=== PATIENT | female | born 1995 | race African-American/Black ===

== ENCOUNTER 2020-04-04 13:51 | Observation (INO) | payer OTHER ==
[~2020-04-04 13:51] MED LIST: NALOXONE HCL INJ 2 MG/2 ML DISP.SYRIN IV ONE
[2020-04-04] MEDS ORDERED: NORMAL SALINE 1000 ML 1,000 ML IV ONE (14:03)
[2020-04-04 14:20] LABS: ABSOLUTE LYMPHOCYTES (AUTO) 2.5 10^3/uL (0.5-4.7); ABSOLUTE MONOCYTES (AUTO) 0.5 10^3/uL (0.1-1.4); BASOPHILS % (AUTO) 0.3 % (0-2); EOSINOPHILS % (AUTO) 0.6 % (0-6); HEMATOCRIT 38.9 % (36.0-47.0); HEMOGLOBIN 13.4 g/dL (12.0-15.5); LYMPHOCYTES % (AUTO) 41.5 % (13-45); MEAN CORPUSCULAR HEMOGLOBIN 29.6 pg (27.0-33.4); MEAN CORPUSCULAR HGB CONC 34.5 g/dL (32.0-36.0); MEAN CORPUSCULAR VOLUME 86 fl (80-97); MONOCYTES % (AUTO) 7.7 % (3-13); PLATELET COUNT 226 10^3/uL (150-450); RED BLOOD COUNT 4.53 10^6/uL (3.72-5.28); SEGMENTED NEUTROPHILS % (AUTO) 49.9 % (42-78); TOTAL CELLS COUNTED % (AUTO) 100 %
[2020-04-04] MEDS ORDERED: LORAZEPAM INJ 2 MG/1 ML VIAL IV ONE (14:25)
[2020-04-04 14:38] LABS: ALBUMIN 4.5 g/dL (3.5-5.0); ALCOHOL 45 mg/dL (NONE DETECTED); ALKALINE PHOSPHATASE 68 U/L (38-126); ANION GAP 8 (5-19); ASPARTATE AMINO TRANSFERASE 27 U/L (14-36); BILIRUBIN,DIRECT 0.2 mg/dL (0.0-0.4); BILIRUBIN,TOTAL 0.9 mg/dL (0.2-1.3); BLOOD UREA NITROGEN 11 mg/dL (7-20); CALCIUM 9.9 mg/dL (8.4-10.2); CARBON DIOXIDE 26 mmol/L (22-30); CHLORIDE 103 mmol/L (98-107); GLUCOSE 101 mg/dL (75-110); POTASSIUM 4.7 mmol/L (3.6-5.0); TOTAL PROTEIN 7.7 g/dL (6.3-8.2)
[2020-04-04 14:41] LABS: ACETAMINOPHEN < 10 ug/mL (10-30); SALICYLATE < 1.0 mg/dL (2.0-20.0)
[2020-04-04 14:42] LABS: APPEARANCE,URINE CLEAR; BILIRUBIN,URINE NEGATIVE (NEGATIVE); COLOR,URINE STRAW; GLUCOSE, URINE NEGATIVE (NEGATIVE); KETONES,URINE NEGATIVE (NEGATIVE); PROTEIN,URINE NEGATIVE (NEGATIVE); URINE SPECIFIC GRAVITY 1.008; UROBILINOGEN,URINE NEGATIVE mg/dL (<2.0)
--- NOTE | 2020-04-04 14:46 | RADIOLOGY REPORT (SQ) ---
EXAM DESCRIPTION: CHEST SINGLE VIEW IMAGES COMPLETED DATE/TIME: 04/04/2020 2:32 pm REASON FOR STUDY: tube placement COMPARISON: None. EXAM PARAMETERS: NUMBER OF VIEWS: One view. TECHNIQUE: Single frontal radiographic view of the chest acquired. RADIATION DOSE: NA LIMITATIONS: None. FINDINGS: LUNGS AND PLEURA: No opacities, masses or pneumothorax. No pleural effusion. MEDIASTINUM AND HILAR STRUCTURES: No masses. Contour normal. HEART AND VASCULAR STRUCTURES: Heart normal in size. Normal vasculature. BONES: No acute findings. HARDWARE: None in the chest. OTHER: Endotracheal tube tip between thoracic inlet and marge. Nasogastric tube tip overlying the s tomach. IMPRESSION: Good position of endotracheal and nasogastric tubes. No pneumothorax. TECHNICAL DOCUMENTATION: JOB ID: [id number] 2010 [id number]- All Rights Reserved Reading location - IP/workstation name: [email or web address]
--- NOTE | 2020-04-04 14:47 | ER Document Report ---
ED General - General Chief Complaint: Overdose Stated Complaint: POSSIBLE OVERDOSE Time Seen by Provider: 04/04/20 14:02 - HPI Notes: Chief complaint: Attentional overdose History of present illness: 25-year-old female with longstanding history of major depression transported here via EMS after taking intentional overdose of undetermined quantity of BuSpar and whiskey. Further details of the answers are unclear. EMS noted that the patient was profoundly somnolent with impaired gag reflex and minimal responsiveness to deep pain. They were bagging her intermittently during transport. Blood sugar in the field by fingerstick was 122. They did not administer Narcan. Family members advised EMS that patient has overdosed herself in the past and is also a "cutter". Other details of prior medical history are undetermined at this time. - Related Data Allergies/Adverse Reactions: No Known Allergies Allergy (Verified 04/04/20 14:59) Past Medical History - General Information source: Emergency Med Personnel Cannot obtain history due to: Altered mental status - Social History Smoking Status: Unknown if Ever Smoked Lives with: Spouse/Significant other Family History: Reviewed & Not Pertinent Review of Systems - Review of Systems -: Yes ROS unobtainable due to patient's medical condition Physical Exam - Vital signs Vitals: Resp Pulse Ox 19 100 04/04/20 13:50 04/04/20 13:50 - Notes Notes: GENERAL: Well-developed well-nourished female approximately stated age who is de eply obtunded. SKIN: Good turgor no rashes. HEAD: Normocephalic atraumatic. EYES: Pupils are small equal and sluggishly reactive to light. Gaze is conjugate. Conjunctivae and sclerae clear. EARS: CANALS AND TMS CLEAR. NOSE: CLEAR. MOUTH: Moist mucosa. Good dentition. No stridor or edema. No drooling. Throat: Absent gag reflex. NECK: Supple. No masses or thyromegaly. No adenopathy. Carotids 2+ without bruits. No JVD. BACK: Symmetrical without tenderness. CHEST: Respirations shallow. Breath sounds clear and symmetrical. HEART: Regular rhythm. No murmur gallop or rub. ABDOMEN: Soft nontender without masses, organomegaly or rebound. Bowel sounds normally active. No bruits. GENITALIA: Deferred. EXTREMITIES: No edema. No calf tenderness. Cap refill less than 1.5 seconds. Dorsalis pedis and posterior tibial pulses 3+ and symmetrical. NEUROLOGICAL: Patient is nonverbal. She will open eyes to loud verbal stimuli. Localizes pain. Moves all 4 extremities symmetrically in response to pain. Course - Re-evaluation Re-evalutation: 04/04/20 14:47 We gave the patient Narcan. Her level of responsiveness failed to improve at all. She had persistent absence of gag reflex. She was intubated for airway protection. Within 10 minutes of intubation the patient started coughing vigorously sitting upright in the bed and grabbing for the ET tube. We felt at that point she should be extubated and the ET tube was removed. Patient subsequently is talking to me and tells me that she "just wanted to get away" but is reticent to relate much additional history. Patient" for IVC this time. Her medical work-up is in progress for medical clearance. 04/04/20 16:52 Patient is alert and oriented x3 with stable vital signs at this time. Her salicylate and acetaminophen levels were undetectable. Her EKG showed no alteration of axis or intervals. She remains in a normal sinus rhythm at this time. Chemistry profile is unremarkable. Her blood alcohol initially was 49. Her urine tox screen here was all negative. Findings have been discussed with on-call steam bone press tender at [place] poison control Dr. Rogel concerned that the patient may have an undetected coingestions because of her severe ischial symptoms including respiratory depression and altered mental status with loss of airway protection requiring brief intubation. He has recommended that patient should be admitted to a tele metry monitored bed for 24 hours to complete medical clearance. Behavioral team is seen the patient in a petition for IVC. I have discussed current findings and toxicology recommendations with Dr. Thompson and he has assigned case for admission to Dr. Edmonds. I am awaiting a return call to have him accept the admission. - Vital Signs Vital signs: Temp Pulse Resp BP Pulse Ox 97.2 F 15 122/76 100 04/04/20 15:01 04/04/20 15:01 04/04/20 15:01 04/04/20 15:01 - Laboratory Result Diagrams: 04/04/20 13:50 04/04/20 13:50 Laboratory results interpreted by me: 04/04/20 13:50 Salicylates < 1.0 L Acetaminophen < 10 L - Diagnostic Test Radiology reviewed: Image reviewed, Reports reviewed Radiology results interpreted by me: 04/04/20 14:49 Chest X-Ray 04/04/20 14:16 IMPRESSION: Good position of endotracheal and nasogastric tubes. No p neumothorax. - EKG Interpretation by Me Additional EKG results interpreted by me: 04/04/20 14:49 Twelve-lead EKG reviewed by me contemporaneously: 1356 hrs. Indication for study: Polydrug overdose Rhythm: Normal sinus Rate:81 Intervals: Normal QRS axis: Normal +[address]/T wave changes: None Comparison with prior tracing: None Interpretation: Normal EKG Procedures - Intubation Orotracheal Time of Intubation: 14:10 Airway evaluation: Normal anatomy Mallampati Classification: Class 2 Medications: Succinylcholine Intubation method: Orotracheal Blade type: Marilynn Blade size: 3 Equipment used: Glidescope ETT size: 7.5 ETT secured at: Lips ETT secured at (cm): 23 Breath Sounds after Intubation: Equal End tidal CO2 confirmed: Yes Post Intubation Xray: Yes - Good tube position Intubation Complications: No complications Critical Care Note - Critical Care Note Total time excluding time spent on procedures (mins): 35 - Intentional drug/alcohol overdose. Intubated by me on arrival for airway protection. Discharge - Discharge Clinical Impression: Intentional overdose BuSpar, Suicide attempt by deliberate overdose Condition: Stable Disposition: ADMITTED INPATIENT Admitting Provider: Kendal (Hospitalist) Unit Admitted: Telemetry
[2020-04-04 15:00] LABS: URINE AMPHETAMINES SCREEN NEGATIVE; URINE BARBITURATES SCREEN NEGATIVE; URINE BENZODIAZEPINES SCREEN NEGATIVE; URINE COCAINE SCREEN NEGATIVE; URINE MARIJUANA (THC) SCREEN NEGATIVE; URINE METHADONE SCREEN NEGATIVE; URINE PHENCYCLIDINE SCREEN NEGATIVE
[2020-04-04] MEDS ORDERED: NALOXONE HCL INJ/PF 0.4 MG/1 ML SDV IV ONE (15:02)
[2020-04-04] MEDS ORDERED: SUCCINYLCHOLINE CHLORIDE INJ 200 MG/10 ML VIAL IV ONE (15:02)
--- NOTE | 2020-04-04 15:18 | RADIOLOGY REPORT (SQ) ---
EXAM DESCRIPTION: CHEST SINGLE VIEW IMAGES COMPLETED DATE/TIME: 04/04/2020 3:01 pm REASON FOR STUDY: Postextubation COMPARISON: Earlier same day. EXAM PARAMETERS: NUMBER OF VIEWS: One view. TECHNIQUE: Single frontal radiographic view of the chest acquired. RADIATION DOSE: NA LIMITATIONS: None. FINDINGS: LUNGS AND PLEURA: No opacities, masses or pneumothorax. No pleural effusion. MEDIASTINUM AND HILAR STRUCTURES: No masses. Contour normal. HEART AND VASCULAR STRUCTURES: Heart normal in size. Normal vasculature. BONES: No acute findings. HARDWARE: None in the chest. OTHER: No other significant finding. IMPRESSION: Interval extubation. No pneumothorax. TECHNICAL DOCUMENTATION: JOB ID: [id number] 2010 [facility]- All Rights Reserved Reading location - IP/workstation name: [email or web address]
[2020-04-04] MEDS ORDERED: SUCCINYLCHOLINE CHLORIDE INJ 200 MG/10 ML VIAL ONE (15:44)
[2020-04-04] MEDS ORDERED: ACETAMINOPHEN 325 MG TABLET PO PRN (17:00)
[2020-04-04] MEDS ORDERED: ONDANSETRON HCL INJ/PF 4 MG/2 ML SDV IV PRN (17:00)
--- NOTE | 2020-04-04 17:16 | PDOC H&P ---
History of Present Illness Admission Date/PCP: 04/04/20 17:00 Patient complains of: Brought in by EMS with intentional drug overdose History of Present Illness: HAMMAD CASTILLO is a 25 year old female history of major depression brought in by EMS with complaints of intentional drug overdose including BuSpar and whiskey. In the emergency room patient was intubated to protect the airway after 10 minutes patient tried to pull out the ET-tube, ER physician pull the ET tube out to prevent trauma. Lab work within normal limits. EKG within normal limits. Psych consult was requested. Poison control is notified. As per the poison control recommendations medical consult was called to place the patient in the hospital for observation with telemetry. Past Medical History Cardiac Medical History: Reports: None Pulmonary Medical History: Reports: None EENT Medical History: Reports: None Neurological Medical History: Reports: None Renal/ Medical History: Reports: None Malignancy Medical History: Reports: None Musculoskeltal Medical History: Reports: None Psychiatric Medical History: Reports: Bipolar Disorder, Depression Traumatic Medical History: Reports: None Hematology: Reports: Sickle Cell Disease Social History Lives with: Family, Spouse/Significant other Smoking Status: Current Every Day Smoker Frequency of Alcohol Use: Occasional Hx Recreational Drug Use: No Hx Prescription Drug Abuse: No - Advance Directive Resuscitation Status: Full Code Family History Family History: Reviewed & Not Pertinent Parental Family History Reviewed: Yes - Hypertension. Children Family History Reviewed: Yes Sibling(s) Family History Reviewed.: Yes Medication/Allergy Allergies/Adverse Reactions: No Known Allergies Allergy (Verified 04/04/20 14:59) Review of Systems Constitutional: ABSENT: fever(s) Eyes: ABSENT: visual disturbances Ears: ABSENT: hearing changes Cardiovascular: ABSENT: edema Respiratory: ABSENT: dyspnea, hemoptysis Gastrointestinal: ABSENT: as per HPI Genitourinary: ABSENT: dysuria, hematuria Integumentary: ABSENT: lesions, pruritus Neurological: ABSENT: abnormal gait, abnormal speech, confusion, dizziness, focal weakness, syncope Psychiatric: PRESENT: depression, suicidal ideation Endocrine: ABSENT: cold intolerance, heat intolerance, polydipsia, polyuria Physical Exam Vital Signs: Temp Pulse Resp BP Pulse Ox 97.2 F 15 122/76 100 04/04/20 15:01 04/04/20 15:01 04/04/20 15:01 04/04/20 15:01 Intake & Output 04/03/20 04/04/20 04/05/20 06:59 06:59 06:59 Intake Total 1000 Balance 1000 Weight 90 kg General appearance: PRESENT: no acute distress, cooperative, well-developed Head exam: PRESENT: atraumatic Eye exam: PRESENT: conjunctiva pale, PERRLA Mouth exam: PRESENT: moist, tongue midline Neck exam: ABSENT: carotid bruit, JVD, lymphadenopathy, thyromegaly Respiratory exam: PRESENT: decreased breath sounds Cardiovascular exam: PRESENT: RRR. ABSENT: diastolic murmur, rubs, systolic murmur GI/Abdominal exam: PRESENT: normal bowel sounds, soft. ABSENT: distended, guarding, mass, organolmegaly, rebound, tenderness Rectal exam: PRESENT: deferred Extremities exam: PRESENT: full ROM. ABSENT: calf tenderness, clubbing, pedal edema Neurological exam: PRESENT: alert, awake, oriented to person, oriented to place, oriented to time, oriented to situation, CN II-XII grossly intact. ABSENT: motor sensory deficit Results Laboratory Results: 04/04/20 13:50 04/04/20 13:50 04/04/20 04/04/20 04/04/20 13:50 13:50 14:02 WBC 6.0 RBC 4.53 Hgb 13.4 Hct 38.9 MCV 86 MCH 29.6 MCHC 34.5 RDW 13.0 Plt Count 226 Seg Neutrophils % 49.9 Sodium 137.4 Potassium 4.7 Chloride 103 Carbon Dioxide 26 Anion Gap 8 BUN 11 Creatinine 0.90 Est GFR ( Amer) > 60 Glucose 101 Calcium 9.9 Total Bilirubin 0.9 AST 27 Alkaline Phosphatase 68 Total Protein 7.7 Albumin 4.5 Urine Color STRAW Urine Appearance CLEAR Urine pH 6.0 Ur Specific [place] 1.008 Urine Protein NEGATIVE Urine Glucose (UA) NEGATIVE Urine Ketones NEGATIVE Urine Blood NEGATIVE Impressions: Chest X-Ray 04/04/20 14:49 IMPRESSION: Interval extubation. No pneumothorax. Assessment and Plan - Diagnosis (1) Drug overdose Is this a current diagnosis for this admission?: Yes Plan: 04/04/2020-patient is going to be admitted to telemetry with a diagnosis of drug overdose. Intentional drug overdose. As per the patient she did not slept for several days to get to sleep. She took BuSpar and whiskey. Patient was intub ated and extubated in the emergency room. Psych consult was requested. Patient is under IVC commitment. EKG within normal limits labs are within normal limits. Chest x-ray was normal. To admit the patient to continuously monitor the telemetry. Alcohol level is 45. Started on IV fluids normal saline at 75 cc/h. (2) Smoker Is this a current diagnosis for this admission?: No Plan: 04/04/2020-patient is a chronic daily day smoker. Smoking counseling was provided. To start her on nicotine patches. (3) Bipolar disorder Is this a current diagnosis for this admission?: No Plan: 04/04/2020-patient has history of bipolar disorder. As per the patient she is taking Latuda, BuSpar, Wellbutrin. Psych consult was requested for further MANAGEMENT.. - Time Anticipated Discharge Disposition: Home, Self Care Anticipated Discharge Timeframe: within 24 hours
[2020-04-04] MEDS: PANTOPRAZOLE SODIUM 40 MG TABLET.DR PO SCH (18:30)
[2020-04-04] MEDS: NORMAL SALINE 1000 ML 1,000 ML IV PRN (18:32)
--- NOTE | 2020-04-04 18:52 | PSYCHOLOGICAL NOTE ---
Psych Note - Psych Note Date seen by psych provider: 04/04/20 Time seen by psych provider: 17:30 Psych Note: Reason for Consult: intentional overdose Consent permissions: Patient's sister at bedside per patient's request Patient arrived to [facility] ED via EMS after intentional overdose on Buspar while drinking alcohol. Patient reports [facility] that she thought would be about her time in services; however, they "made" her discuss all her history to include her trauma history has a child, her first , etc. Patient reports she has been arguing with her and just found out he has been cheating (she reports he continues to deny infidelity to her). She stated that her children have been irritable and having difficulties and when she got home after her evaluation session and saw they were still not dressed, she reports "I couldn't take it anymore." Patient sister identifies wanting to be part of patient's plan of care. She reports that she feels it would be better for the patient to come stay with her after treatment due to current marital discord. Patient is alert and orientated to person, place time and circumstance. Mood is dysphoric with flat affect (patient is still feeling the effects of overdose). Patient admits intentional overdose. She denies homicidal ideation. Delusions are absent and behaviors congruent with an intact reality based presentation i.e. organized and linear thought process. Eye contact is fair. Conversational speech is quiet but easily understood. Attention and concentration is fair. Insight, judgment, impulse control is poor. Clinical presentation: Intentional overdose Impression\\plan: Patient is on 24-hour petition for evaluation. Patient reports intentional overdose on her BuSpar while drinking alcohol. Patient identifies triggers including difficult psychiatric evaluation today reviewing all past traumas and marital discord/ possible infidelity. Patient has been medically admitted. Evaluation is ongoing. Dr. Baird was consulted in the care management of this patient; attending physicians in agreement with recommendations and disposition.
--- NOTE | 2020-04-04 19:06 | EKG REPORT ---
SEVERITY:- NORMAL ECG - SINUS RHYTHM : Confirmed by: Julissa Barbour MD 04-Apr-2020 19:06:05
[2020-04-05] MEDS: PANTOPRAZOLE SODIUM 40 MG TABLET.DR PO SCH (06:50)
[2020-04-05 07:31] LABS: ABSOLUTE LYMPHOCYTES (AUTO) 2.3 10^3/uL (0.5-4.7); ABSOLUTE MONOCYTES (AUTO) 0.4 10^3/uL (0.1-1.4); ABSOLUTE NEUT (AUTO) 5.2 10^3/uL (1.7-8.2); BASOPHILS % (AUTO) 0.5 % (0-2); EOSINOPHILS % (AUTO) 0.4 % (0-6); HEMATOCRIT 37.4 % (36.0-47.0); LYMPHOCYTES % (AUTO) 28.6 % (13-45); MEAN CORPUSCULAR HEMOGLOBIN 30.6 pg (27.0-33.4); MEAN CORPUSCULAR HGB CONC 34.7 g/dL (32.0-36.0); MEAN CORPUSCULAR VOLUME 88 fl (80-97); MONOCYTES % (AUTO) 5.6 % (3-13); PLATELET COUNT 210 10^3/uL (150-450); RED BLOOD COUNT 4.25 10^6/uL (3.72-5.28); RED CELL DISTRIBUTION WIDTH 13.3 % (11.5-14.0); SEGMENTED NEUTROPHILS % (AUTO) 64.9 % (42-78); TOTAL CELLS COUNTED % (AUTO) 100 %
[2020-04-05 07:43] LABS: ALBUMIN 3.6 g/dL (3.5-5.0); ALKALINE PHOSPHATASE 57 U/L (38-126); ANION GAP 10 (5-19); ASPARTATE AMINO TRANSFERASE 22 U/L (14-36); BILIRUBIN,TOTAL 0.8 mg/dL (0.2-1.3); BLOOD UREA NITROGEN 9 mg/dL (7-20); CALCIUM 9.1 mg/dL (8.4-10.2); CARBON DIOXIDE 24 mmol/L (22-30); CHLORIDE 107 mmol/L (98-107); CHOLESTEROL 180.14 mg/dL (0-200); GLUCOSE 96 mg/dL (75-110); POTASSIUM 4.2 mmol/L (3.6-5.0); TOTAL PROTEIN 6.4 g/dL (6.3-8.2); TRIGLYCERIDES 62 mg/dL (<150)
[2020-04-05 07:54] LABS: DIRECT LDL 144 mg/dL (<100); NT PRO BNP 13 pg/mL (<125)
[2020-04-05 07:59] LABS: TROPONIN I < 0.012 ng/mL
--- NOTE | 2020-04-05 08:24 | PDOC PROGRESS REPORT ---
Subjective Date:: 04/05/20 Subjective:: 25 year old female history of major depression brought in by EMS with complaints of intentional drug overdose including BuSpar and whiskey. In the emergency room patient was intubated to protect the airway after 10 minutes patient tried to pull out the ET-tube, ER physician pull the ET tube out to prevent trauma. Lab work within normal limits. EKG within normal limits. Psych consult was requested. Poison control is notified. As per the poison control recommendations medical consult was called to place the patient in the hospital for observation with telemetry. 04/05/[id number] female admitted for BuSpar, pesky overdose. Alert awake communicating well. Psych consult was done. Waiting for the further recommendations. Patient will be medically cleared from today. Reason For Visit: INTENTIONAL OVERDOSE BUSPAR,SUICIDE ATTEMPT BY Physical Exam Vital Signs: Temp Pulse Resp BP Pulse Ox 98.1 F 12 119/82 99 04/05/20 05:42 04/05/20 06:01 04/05/20 06:01 04/05/20 06:01 Intake & Output 04/04/20 04/05/20 04/06/20 06:59 06:59 06:59 Intake Total 1000 Output Total 2000 Balance -1000 Weight 90 kg General appearance: PRESENT: no acute distress, well-developed Head exam: PRESENT: atraumatic Eye exam: PRESENT: PERRLA Mouth exam: PRESENT: moist, tongue midline Neck exam: ABSENT: carotid bruit, JVD, lymphadenopathy, thyromegaly Respiratory exam: PRESENT: clear to auscultation jill. ABSENT: rales, rhonchi, wheezes Cardiovascular exam: PRESENT: RRR. ABSENT: diastolic murmur, rubs, systolic murmur GI/Abdominal exam: PRESENT: normal bowel sounds, soft. ABSENT: distended, guarding, mass, organolmegaly, rebound, tenderness Rectal exam: PRESENT: deferred Extremities exam: PRESENT: full ROM. ABSENT: calf tenderness, clubbing, pedal edema Neurological exam: PRESENT: alert, awake, oriented to person, oriented to place, oriented to time, oriented to situation, CN II-XII grossly intact. ABSENT: motor sensory deficit Psychiatric exam: PRESENT: appropriate affect, normal mood. ABSENT: homicidal ideation, suicidal ideation Results Laboratory Results: 04/05/20 06:50 04/05/20 06:50 04/04/20 04/04/20 04/04/20 13:50 13:50 14:02 WBC 6.0 RBC 4.53 Hgb 13.4 Hct 38.9 MCV 86 MCH 29.6 MCHC 34.5 RDW 13.0 Plt Count 226 Seg Neutrophils % 49.9 Sodium 137.4 Potassium 4.7 Chloride 103 Carbon Dioxide 26 Anion Gap 8 BUN 11 Creatinine 0.90 Est GFR ( Amer) > 60 Glucose 101 Calcium 9.9 Magnesium Total Bilirubin 0.9 AST 27 Alkaline Phosphatase 68 Total Protein 7.7 Albumin 4.5 Triglycerides Cholesterol LDL Cholesterol Direct VLDL Cholesterol HDL Cholesterol TSH Urine Color STRAW Urine Appearance CLEAR Urine pH 6.0 Ur Specific [place] 1.008 Urine Protein NEGATIVE Urine Glucose (UA) NEGATIVE Urine Ketones NEGATIVE Urine Blood NEGATIVE 04/05/20 04/05/20 04/05/20 06:50 06:50 06:50 WBC 8.0 RBC 4.25 Hgb 13.0 Hct 37.4 MCV 88 MCH 30.6 MCHC 34.7 RDW 13.3 Plt Count 210 Seg Neutrophils % 64.9 Sodium 141.1 Potassium 4.2 Chloride 107 Carbon Dioxide 24 Anion Gap 10 BUN 9 Creatinine 0.83 Est GFR ( Amer) > 60 Glucose 96 Calcium 9.1 Magnesium 2.1 Total Bilirubin 0.8 AST 22 Alkaline Phosphatase 57 Total Protein 6.4 Albumin 3.6 Triglycerides 62 Cholesterol 180.14 LDL Cholesterol Direct 144 H VLDL Cholesterol 12.0 HDL Cholesterol 36 L TSH 1.62 Urine Color Urine Appearance Urine pH Ur Specific [place] Urine Protein Urine Glucose (UA) Urine Ketones Urine Blood 04/04/20 04/05/20 04/05/20 19:13 00:48 06:50 Troponin I < 0.012 < 0.012 < 0.012 NT-Pro-B Natriuret Pep 13 Impressions: Chest X-Ray 04/04/20 14:49 IMPRESSION: Interval extubation. No pneumothorax. Assessment and Plan - Diagnosis (1) Drug overdose Is this a current diagnosis for this admission?: Yes Plan: 04/04/2020-patient is going to be admitted to telemetry with a diagnosis of drug overdose. Intentional drug overdose. As per the patient she did not slept for several days to get to sleep. She took BuSpar and whiskey. Patient was intubated and extubated in the emergency room. Psych consult was requested. Patient is under IVC commitment. EKG within normal limits labs are within normal limits. Chest x-ray was normal. To admit the patient to continuously monitor the telemetry. Alcohol level is 45. Started on IV fluids normal saline at 75 cc/h. 04/05/2020-patient admitted with her drug overdose with BuSpar and alcohol abuse. Doing well. Labs are within normal limits. EKGs are within normal limits. Telemetry monitoring within normal limits. Patient is medically cleared. (2) Smoker Is this a current diagnosis for this admission?: No Plan: 04/04/2020-patient is a chronic daily day smoker. Smoking counseling was pr ovided. To start her on nicotine patches. (3) Bipolar disorder Is this a current diagnosis for this admission?: No Plan: 04/04/2020-patient has history of bipolar disorder. As per the patient she is taking Latuda, BuSpar, Wellbutrin. Psych consult was requested for further MANAGEMENT.. - Time Anticipated Discharge Disposition: Home, Self Care Anticipated Discharge Timeframe: within 72 hours
[2020-04-05] MEDS: NORMAL SALINE 1000 ML 1,000 ML IV PRN (08:51)
[2020-04-05] MEDS ORDERED: NICOTINE 21 MG/24 HR PATCH.TD24 TD SCH (10:00)
[2020-04-05] MEDS ORDERED: ENOXAPARIN SODIUM INJ 40 MG/0.4 ML DISP.SYRIN SUBCUT SCH (10:00)
--- NOTE | 2020-04-05 12:02 | PSYCHOLOGICAL NOTE ---
Psych Note - Psych Note Date seen by psych provider: 04/05/20 Time seen by psych provider: 11:37 Psych Note: Presenting Problem: Overdose From [id number] obtained collateral and discussion for plan of care for discharge from/with mother Ene Haider ([phone]). Patient provided the contact information. She stated "as far as she knows patient has never done this before, she had been seeing a therapist outpatient for depression but is unsure when the last time was, things had gotten sienna so she moved out of patient's home but resides just down the street, and stated because of not being in the house lately is not aware of what's been going on with patient." She stated "I will do as much as I can to help, to help her get better, to be part of the support system." She stated she does not live far and would be able/willing to keep medications, bring them to patient when she is supposed to take them, and stated "I will do anything to avoid this happening again."
--- NOTE | 2020-04-05 13:08 | PSYCHOLOGICAL NOTE ---
Psych Note - Psych Note Date seen by psych provider: 04/05/20 Time seen by psych provider: 11:02 Psych Note: [id number] Re-evaluation Reason for Consult: suicidal ideation and suicide attempt via overdose Consent Permissions: Mother, Jackson Haider, Patient denies suicidal ideations, plan, and intent. She reports yesterday was eye opening and she wants to get better. Patient reports she has a strong support system with family to include her sister, her mother who recently moved to the area, her childrens godmother in the area, and states her is also a support. Patient reports her came to visit her last night and they had a good talk. Patient and her spouse have gone to marital counseling two times in the past and they plan to try again. 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 Patient was alert and oriented to self, person, place, time and situation. Mood was content with congruent affect. She denied current SI/HI. Patient did not appear to be responding to internal stimuli as evidenced by fair eye contact and answering questions appropriately when addressed. Thought processes are linear and organized. Conversational speech was within normal limits for rate, tone and prosody. Intellectual abilities are estimated to be average. Insight, judgment and impulse control were fair as evidenced by stating she made a mistake and the mistake was eye opening to her. She acknowledges a strong support system at home. 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 Patient resides with her spouse and 4 kids. She has been trying to be involved in therapy since November when she had her baby, but is struggling to get connected due to COVID-19 restrictions. Patient engages appropriately with clinician. Clinical Presentation: suicidal ideations and suicide attempt IVC Criteria per [place] GS 122C Dangerous to others Within the relevant past the individual No has inflicted or attempted to inflict or threatened to inflict serious bodily harm on another AND No that there is a reasonable probability that this conduct will be repeated. OR No has acted in such a way as to create a substantial risk of serious bodily harm to another AND No that there is a reasonable probability that this conduct will be repeated. OR No has engaged in extreme destruction of property AND NO that there is a reasonable probability that this conduct will be repeated. Previous episodes of dangerousness to others, when applicable, may be considered when determining reasonable probability of future dangerous conduct. Clear, cogent, and convincing evidence that an individual has committed a homicide in the relevant past is prima facie evidence of dangerousness to others. Dangerous to self Within the relevant past the individual has done any of the following: acted in such a way as to show ALL of the following: No The individual would be unable without care, supervision, and the continued assistance of others not otherwise available, to exercise self- control, judgment, and discretion in the conduct of the individual's daily responsibilities and social relations or to satisfy the individual's need for nourishment, personal or medical care, senior care, or self-protection and safety. AND No There is a reasonable probability of the individual suffering serious physical debilitation within the near future unless adequate treatment is given. A showing of behavior that is grossly irrational, of actions that the individual is unable to control, of behavior that is grossly inappropriate to the situation, or of other evidence of severely impaired insight and judgment shall create a prima facie inference that the individual is unable to care for himself or herself. OR Yes has attempted suicide or threatened suicide Yes, patient overdosed on her pills after a stressful intake assessment with the NH AND No that there is a reasonable probability of suicide unless adequate treatment is given Patient has fair insight and states she is not suicidal, denies plan and intent; strong family support after discharge; behavioral health is working with NH to get outpatient appointment; reports future forward goal oriented thinking OR No has mutilated himself or herself or attempted to mutilate himself or herself AND No that there is a reasonable probability of serious self-mutilation unless adequate treatment is given. NOTE: Previous episodes of dangerousness to self, when applicable, may be considered when determining reasonable probability of physical debilitation, suicide, or self-mutilation. Impression\plan: Patient is cleared from acute psychiatric services. Recommendation to RESCIND 24 Hour Petition for Evaluation. Patient was admitted to the ED after intentionally overdosing on Buspar while drinking alcohol. She had an appointment with the NH where she discussed all her history to include her trauma history has a child, her first , etc. She had reported marital issues. During her assessment today, she denies suicidal ideations, plan, and intent. She is no longer a danger to herself. Patient displays future forward goal oriented thinking to include plans to start therapy, start marriage counseling, and discussed graduating college in July 2020. Patient has been given a community outpatient referral list to include phone numbers for [facility] and [facility] mobile crisis. If she experiences worsening or a significant change in your symptoms, she was recommended notify the physician immediately, utilize mobile crisis, or return to the Emergency Department at any time for re- evaluation. Her family to include godmother of children, sister, and mother have been made a part of her discharge plan of care. Dr. Baird was consulted to care management of this patient; attending physicians in agreement with recommendations and disposition.
[2020-04-05 14:22] VITALS: BP 129/77
--- NOTE | 2020-04-05 15:15 | PDOC DISCHARGE SUMMARY ---
Impression - Admit/DC Date/PCP Admission Date/Primary Care Provider: 04/04/20 17:00 Discharge Date: 04/05/20 - Discharge Diagnosis (1) Drug overdose Is this a current diagnosis for this admission?: Yes (2) Smoker Is this a current diagnosis for this admission?: No (3) Bipolar disorder Is this a current diagnosis for this admission?: No - Assessment Summary: (1) Drug overdose Is this a current diagnosis for this admission?: Yes Plan: 04/04/2020-patient is going to be admitted to telemetry with a diagnosis of drug overdose. Intentional drug overdose. As per the patient she did not slept for several days to get to sleep. She took BuSpar and whiskey. Patient was intubated and extubated in the emergency room. Psych consult was requested. Patient is under IVC commitment. EKG within normal limits labs are within sabas l limits. Chest x-ray was normal. To admit the patient to continuously monitor the telemetry. Alcohol level is 45. Started on IV fluids normal saline at 75 cc/h. 04/05/2020-patient admitted with her drug overdose with BuSpar and alcohol abuse. Doing well. Labs are within normal limits. EKGs are within normal limits. Telemetry monitoring within normal limits. Patient is medically cleared. 04/05/2020-patient condition is stable. Patient is cleared by psych team to go home today. No medication recommendations made by the psych team. (2) Smoker Is this a current diagnosis for this admission?: No Plan: 04/04/2020-patient is a chronic daily day smoker. Smoking counseling was provided. To start her on nicotine patches. (3) Bipolar disorder Is this a current diagnosis for this admission?: No Plan: 04/04/2020-patient has history of bipolar disorder. As per the patient she is taking Latuda, BuSpar, Wellbutrin. Psych consult was requested for further MANAGEMENT.. - Additional Information Resuscitation Status: Full Code Discharge Diet: Cardiac Discharge Activity: Activity As Tolerated Home Medications: Enoxaparin Sodium [Lovenox Inj 40 mg/0.4 ml Disp.syrin] 40 mg SUBCUT DAILY disp.syrin 04/05/20 History of Present Illiness History of Present Illness: HAMMAD CASTILLO is a 25 year old female history of major depression brought in by EMS with complaints of intentional drug overdose including BuSpar and whiskey. In the emergency room patient was intubated to protect the airway after 10 minutes patient tried to pull out the ET-tube, ER physician pull the ET tube out to prevent trauma. Lab work within normal limits. EKG within normal limits. Psych consult was requested. Poison control is notified. As per the poison control recommendations medical consult was called to place the patient in the hospital for observation with telemetry. Hospital Course Hospital Course: 25 year old female history of major depression brought in by EMS with complaints of intentional drug overdose including BuSpar and whiskey. In the emergency room patient was intubated to protect the airway after 10 minutes patient tried to pull out the ET-tube, ER physician pull the ET tube out to prevent trauma. Lab work within normal limits. EKG within normal limits. Psych consult was requested. Poison control is notified. As per the poison control recommendations medical consult was called to place the patient in the hospital for observation with telemetry. [id number]-old female admitted for BuSpar, pesky overdose. Alert awake communicating well. Psych consult was done. Waiting for the further recommendations. Patient will be medically cleared from today. 04/05/2020-patient is cleared by the psych team to go home today. Patient is advised to follow-up with the psych as an outpatient next week. Physical Exam Vital Signs: Temp Pulse Resp BP Pulse Ox 98.0 F 70 18 129/77 H 100 04/05/20 14:19 04/05/20 14:19 04/05/20 14:19 04/05/20 14:19 04/05/20 14:19 Intake & Output 04/04/20 04/05/20 04/06/20 06:59 06:59 06:59 Intake Total 1000 1000 Output Total 2000 Balance -1000 1000 Weight 90 kg General appearance: PRESENT: no acute distress, well-developed Head exam: PRESENT: atraumatic Eye exam: PRESENT: PERRLA Mouth exam: PRESENT: moist, tongue midline Teeth exam: PRESENT: poor dentation Neck exam: ABSENT: carotid bruit, JVD, lymphadenopathy, thyromegaly Respiratory exam: PRESENT: decreased breath sounds Cardiovascular exam: PRESENT: RRR. ABSENT: diastolic murmur, rubs, systolic murmur GI/Abdominal exam: PRESENT: normal bowel sounds, soft. ABSENT: distended, guarding, mass, organolmegaly, rebound, tenderness Rectal exam: PRESENT: deferred Extremities exam: PRESENT: full ROM. ABSENT: calf tenderness, clubbing, pedal edema Neurological exam: PRESENT: alert, awake, oriented to person, oriented to place, oriented to time, oriented to situation, CN II-XII grossly intact. ABSENT: motor sensory deficit Psychiatric exam: PRESENT: appropriate affect, normal mood. ABSENT: homicidal ideation, suicidal ideation Skin exam: PRESENT: dry, intact, warm. ABSENT: cyanosis, rash Results Laboratory Results: WBC 8.0 10^3/uL (4.0-10.5) 04/05/20 06:50 RBC 4.25 10^6/uL (3.72-5.28) 04/05/20 06:50 Hgb 13.0 g/dL (12.0-15.5) 04/05/20 06:50 Hct 37.4 % (36.0-47.0) 04/05/20 06:50 MCV 88 fl (80-97) 04/05/20 06:50 MCH 30.6 pg (27.0-33.4) 04/05/20 06:50 MCHC 34.7 g/dL (32.0-36.0) 04/05/20 06:50 RDW 13.3 % (11.5-14.0) 04/05/20 06:50 Plt Count 210 10^3/uL (150-450) 04/05/20 06:50 Lymph % (Auto) 28.6 % (13-45) 04/05/20 06:50 Hemphill % (Auto) 5.6 % (3-13) 04/05/20 06:50 Eos % (Auto) 0.4 % (0-6) 04/05/20 06:50 Baso % (Auto) 0.5 % (0-2) 04/05/20 06:50 Absolute Neuts (auto) 5.2 10^3/uL (1.7-8.2) 04/05/20 06:50 Absolute Lymphs (auto) 2.3 10^3/uL (0.5-4.7) 04/05/20 06:50 Absolute Monos (auto) 0.4 10^3/uL (0.1-1.4) 04/05/20 06:50 Absolute Eos (auto) 0.0 10^3/uL (0.0-0.6) 04/05/20 06:50 Absolute Basos (auto) 0.0 10^3/uL (0.0-0.2) 04/05/20 06:50 Seg Neutrophils % 64.9 % (42-78) 04/05/20 06:50 Sodium 141.1 mmol/L (137-145) 04/05/20 06:50 Potassium 4.2 mmol/L (3.6-5.0) 04/05/20 06:50 Chloride 107 mmol/L (98-107) 04/05/20 06:50 Carbon Dioxide 24 mmol/L (22-30) 04/05/20 06:50 Anion Gap 10 (5-19) 04/05/20 06:50 BUN 9 mg/dL (7-20) 04/05/20 06:50 Creatinine 0.83 mg/dL (0.52-1.25) 04/05/20 06:50 Est GFR ( Amer) > 60 (>60) 04/05/20 06:50 Est GFR (MDRD) Non-Af > 60 (>60) 04/05/20 06:50 Glucose 96 mg/dL (75-110) 04/05/20 06:50 Hemoglobin A1c % 4.8 % (4.7-6.0) 04/05/20 06:50 Calcium 9.1 mg/dL (8.4-10.2) 04/05/20 06:50 Magnesium 2.1 mg/dL (1.6-2.3) 04/05/20 06:50 Total Bilirubin 0.8 mg/dL (0.2-1.3) 04/05/20 06:50 Direct Bilirubin 0.0 mg/dL (0.0-0.4) 04/05/20 06:50 Neonat Total Bilirubin Not Reportable 04/05/20 06:50 Neonat Direct Bilirubin Not Reportable 04/05/20 06:50 Neonat Indirect Bili Not Reportable 04/05/20 06:50 AST 22 U/L (14-36) 04/05/20 06:50 ALT 13 U/L (<35) 04/05/20 06:50 Alkaline Phosphatase 57 U/L (38-126) 04/05/20 06:50 Troponin I < 0.012 ng/mL 04/05/20 06:50 NT-Pro-B Natriuret Pep 13 pg/mL (<125) 04/05/20 06:50 Total Protein 6.4 g/dL (6.3-8.2) 04/05/20 06:50 Albumin 3.6 g/dL (3.5-5.0) 04/05/20 06:50 Triglycerides 62 mg/dL (<150) 04/05/20 06:50 Cholesterol 180.14 mg/dL (0-200) 04/05/20 06:50 LDL Cholesterol Direct 144 mg/dL (<100) H 04/05/20 06:50 VLDL Cholesterol 12.0 mg/dL (10-31) 04/05/20 06:50 HDL Cholesterol 36 mg/dL (>40) L 04/05/20 06:50 TSH 1.62 uIU/mL (0.47-4.68) 04/05/20 06:50 Urine Color STRAW 04/04/20 14:02 Urine Appearance CLEAR 04/04/20 14:02 Urine pH 6.0 (5.0-9.0) 04/04/20 14:02 Ur Specific [place] 1.008 04/04/20 14:02 Urine Protein NEGATIVE mg/dL (NEGATIVE) 04/04/20 14:02 Urine Glucose (UA) NEGATIVE mg/dL (NEGATIVE) 04/04/20 14:02 Urine Ketones NEGATIVE mg/dL (NEGATIVE) 04/04/20 14:02 Urine Blood NEGATIVE (NEGATIVE) 04/04/20 14:02 Urine Nitrite (Reflex) NEGATIVE (NEGATIVE) 04/04/20 14:02 Urine Bilirubin NEGATIVE (NEGATIVE) 04/04/20 14:02 Urine Urobilinogen NEGATIVE mg/dL (<2.0) 04/04/20 14:02 Leukocyte Esterase Rfl NEGATIVE (NEGATIVE) 04/04/20 14:02 Urine WBC (Reflex) < 1 /HPF 04/04/20 14:02 Urine Mucus (Auto) RARE /LPF 04/04/20 14:02 Urine Ascorbic Acid NEGATIVE (NEGATIVE) 04/04/20 14:02 Urine HCG, Qual NEGATIVE (NEGATIVE) 04/04/20 14:02 Salicylates < 1.0 mg/dL (2.0-20.0) L 11/19/20 13:50 Urine Opiates Screen NEGATIVE 04/04/20 14:02 Urine Methadone Screen NEGATIVE 04/04/20 14:02 Acetaminophen < 10 ug/mL (10-30) L 04/04/20 13:50 Ur Barbiturates Screen NEGATIVE 04/04/20 14:02 Ur Phencyclidine Scrn NEGATIVE 04/04/20 14:02 Ur Amphetamines Screen NEGATIVE 04/04/20 14:02 U Benzodiazepines Scrn NEGATIVE 04/04/20 14:02 Urine Cocaine Screen NEGATIVE 04/04/20 14:02 U Marijuana (THC) Screen NEGATIVE 04/04/20 14:02 Serum Alcohol 45 mg/dL (NONE DETECTED) 04/04/20 13:50 04/04/20 04/05/20 04/05/20 19:13 00:48 06:50 Troponin I < 0.012 < 0.012 < 0.012 NT-Pro-B Natriuret Pep 13 Impressions: Chest X-Ray 04/04/20 14:16 IMPRESSION: Good position of endotracheal and nasogastric tubes. No pneumothorax. Chest X-Ray 04/04/20 14:49 IMPRESSION: Interval extubation. No pneumothorax. Plan Time Spent: Greater than 30 Minutes Stroke Is this a Stroke Patient?: No Acute Heart Failure Is this a Heart Failure Patient?: No
== END 2020-04-05 15:32 | disposition home or self-care (01) ==
LOC: EDBD → ER 13:51 → INTOOBSV 17:00 → EH 17:00
PROVIDERS: ADMIT Internal Medicine; ATTEND Internal Medicine
DX: T43.592A Poisoning by other antipsychotics and neuroleptics, intentional self-harm, initial encounter (principal); F10.10 Alcohol abuse, uncomplicated; F32.9 Major depressive disorder, single episode, unspecified; Z79.899 Other long term (current) drug therapy; Y92.9 Unspecified place or not applicable
CPT/HCPCS: 31500; 93005; 99285; 96361; 96374; 36415 ×2; 80307 ×4; 83735; 84443; 85025 ×2; 81025; 80053 ×2; 81001; 84484 ×2; 83036; 80061; 83880; 71045; 94660; 93010; G0378 ×2; J1650; J0330; J2310; J7030 ×2; J3490 ×2